=== PATIENT | female | born 2000 | race Caucasian/White ===

== ENCOUNTER → 2018-08-12 18:17 | Outpatient (CLI) | payer OTHER, SELFPAY ==
[2014-10-18 20:19] VITALS: BMI 23.0
[2018-08-12 23:03] LABS: Chlamydia Trachomatis by PCR Negative (Negative); Neisserai gonorrhoeae by PCR Negative (Negative); Probe Check PASS; Sample Adequacy Control PASS; Specimen Processing Control PASS
== END ==
PROVIDERS: Family Provider Pediatrics; PCP Pediatrics; Referring Provider Obstetrics & Gynecology; Visit Provider Obstetrics & Gynecology
DX: Z32.01 Encounter for pregnancy test, result positive (principal); Z11.3 Encounter for screening for infections with a predominantly sexual mode of transmission
CPT/HCPCS: 87491; 87591

== ENCOUNTER → 2018-08-26 14:42 | Outpatient (CLI) | payer OTHER, SELFPAY ==
[2014-10-18 20:19] VITALS: BMI 23.0
[2018-08-26 15:47] LABS: Color, Urine Yellow (Yellow); Glucose, Dipstick Normal (Normal); Ketone-Dipstick 5 mg/dl (Negative); Leukocyte Esterase-Dipstick 25 /ul (Negative); Nitrite-Dipstick Negative (Negative); Occult Blood-Urine 25 /ul (Negative); Protein-Dipstick 15 mg/dl (Negative); Urine Bilirubin Dipstick Negative (Negative); Urine Clarity Turbid (Clear); Urine Urobilinogen Normal (Normal)
[2018-08-26 16:18] LABS: Amphetamine Urine VISTA NEGATIVE (<1000 ng/mL); Barbiturate Urine VISTA NEGATIVE (< 200 ng/mL); Benzodiazepine Urine VISTA NEGATIVE (< 200 ng/mL); Cocaine Urine VISTA NEGATIVE (< 300 ng/mL); Ecstacy Urine VISTA NEGATIVE (< 500 ng/mL); Methadone Urine VISTA NEGATIVE (< 300 ng/mL); PCP Urine VISTA NEGATIVE (< 25 ng/mL); THC Urine VISTA NEGATIVE (< 50 ng/mL); Vista UDS pH Range 5
[2018-08-26 16:24] LABS: COTININE Drug Screen Positive (<200 ng/mL)
[2018-08-26 18:39] LABS: Absolute Lymphocyte Count 2.61 X10^3/ul (0.83-4.51); Absolute Neutrophil Count 7.8 X10^3/uL (2.0-7.7); Basophil# 0.01 X10^3/uL; Basophil% 0.1 % (0-1); Eosinophil# 0.25 X10^3/uL; Eosinophils% 2.2 % (0-5); Hemoglobin 12.9 g/dl (12.0-15.0); Lymphocyte # 2.61 X10^3/ul (4.0); Lymphocyte % 22.8 % (19-41); Mean Corp Hgb Conc 34.9 g/gl (32-36); Mean Corpuscular Hgb 33.1 pg (27.0-32.0); Mean Corpuscular Volume 94.9 fL (81-99); Monocyte# 0.73 X10^3/uL; Monocyte% 6.4 % (0-10); Neutrophil # 7.81 X10^3/uL (2.7-7.7); Neutrophil % 68.3 % (47-70); Platelet Count 342 K/mm3 (150-450); RBC Distribution Width CV 12.8 % (11.6-14.6); RBC Distribution Width SD 43.3 fl (35.1-43.9); White Blood Count 11.4 K/mm3 (4.4-11.0)
[2018-08-26 18:41] LABS: POSITIVE COUNT NO; POSITIVE DIFFERENTIAL NO; POSITIVE MORPHOLOGY NO
[2018-08-26 18:58] LABS: Thyroid Stim Hormone (TSH) 3.42 uIU/mL (0.358-3.74)
[2018-08-26 19:40] LABS: HIV - WCH Non-Reactive (Nonreactive); Rubella IgG 52.7 IU/mL
[2018-08-28 15:21] LABS: HEPATITIS B SURFACE AG Negative (Negative); Hep C Antibodies 0.1 s/co ratio (0.0-0.9); V-Zoster IgG (Immunity) 3464 index (Immune >165)
[2018-08-29 07:39] LABS: Prenatal RPR NONREACTIVE (NONREACTIVE)
== END ==
PROVIDERS: Visit Provider Obstetrics & Gynecology
DX: Z34.81 Encounter for supervision of other normal pregnancy, first trimester (principal)
CPT/HCPCS: 36415; 80307; 81002; 84443; 85025; 86703; 86762; 86787; 86803; 87340

== ENCOUNTER → 2019-01-20 | Outpatient (CLI) | payer OTHER, SELFPAY ==
[2014-10-18 20:19] VITALS: BMI 23.0
[2019-01-20 15:33] LABS: Hematocrit 31.1 % (37-47); Hemoglobin 10.6 g/dl (12.0-15.0); Mean Corp Hgb Conc 34.1 g/gl (32-36); Mean Corpuscular Hgb 32.3 pg (27.0-32.0); Mean Corpuscular Volume 94.8 fL (81-99); Mean Platelet Vol. 8.4 fl (6.2-12.0); Platelet Count 276 K/mm3 (150-450); RBC Distribution Width CV 13.3 % (11.6-14.6); Red Blood Count 3.28 M/mm3 (4.2-5.4); White Blood Count 13.1 K/mm3 (4.4-11.0)
[2019-01-20 15:39] LABS: Scan Indicated on CBC? Y/N NO
[2019-01-20 15:51] LABS: Glucose Challenge Gest 1H 50g 130 mg/dL (70-140)
== END | disposition home or self-care (01) ==
LOC: WOBLAB 15:14
PROVIDERS: Visit Provider Obstetrics & Gynecology
DX: Z34.83 Encounter for supervision of other normal pregnancy, third trimester (principal)
CPT/HCPCS: 36415; 82950; 85027

== ENCOUNTER → 2019-03-10 | Outpatient (CLI) | payer OTHER, SELFPAY | END | disposition home or self-care (01) | LOC: LABSPEC 15:53 | PROVIDERS: Visit Provider Obstetrics & Gynecology | DX: Z36.85 Encounter for antenatal screening for Streptococcus B (principal) | CPT/HCPCS: 87081 ==

== ENCOUNTER 2019-04-11 19:00 | Inpatient (IN) | payer OTHER, SELFPAY ==
[2019-04-11 19:45] VITALS: BMI 33.1
[2019-04-11] MEDS: Lactated Ringers 1,000 ML 50 ML IV (19:54)
[2019-04-11 20:09] LABS: Absolute Lymphocyte Count 2.47 X10^3/uL (0.83-4.51); Basophil# 0.02 X10^3/uL; Basophil% 0.1 % (0-1); Eosinophil# 0.22 X10^3/uL; Eosinophils% 1.6 % (0-5); Hematocrit 29.4 % (37-47); Hemoglobin 9.6 g/dL (12.0-15.0); Lymphocyte # 2.47 X10^3/ul (4.0); Lymphocyte % 18.1 % (19-41); Mean Corp Hgb Conc 32.7 g/dL (32-36); Mean Corpuscular Hgb 32.1 pg (27.0-32.0); Mean Corpuscular Volume 98.3 fL (81-99); Mean Platelet Vol. 9.1 fl (6.2-12.0); Monocyte# 0.76 X10^3/uL; Monocyte% 5.6 % (0-10); NRBC Flagged by Analyzer 0.2 % (0-5); Neutrophil # 9.97 X10^3/uL (2.7-7.7); Neutrophil % 73.2 % (47-70); Platelet Count 281 K/mm3 (150-450); RBC Distribution Width CV 14.5 % (11.6-14.6); RBC Distribution Width SD 51.4 fl (35.1-43.9); Red Blood Count 2.99 M/mm3 (4.2-5.4); White Blood Count 13.6 K/mm3 (4.4-11.0)
[2019-04-11] MEDS: miSOPROStol 25 MCG TABLET PO (20:11)
--- NOTE | 2019-04-11 21:00 | HP.PCM_ITS ---
History Date of Admission: 04/11/19 Final SANJAY: 04/05/19 Final SANJAY Source: US <20 weeks Gestational age: 40 Weeks and 6 Days History of this : This is a 18 year-old, G [1], P [0], at 40 6/7 weeks gestational age presents for scheduled induction of labor. +FM. No leaking of fluid, contractions or vaginal bleeding. 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 Allergies Penicillins [PCN] Allergy (Verified 04/11/19 19:44) Rash Home Medications: Home Medications No Known/Unobtainable [No Known Home Medications] 10/18/14 Smoking Status: Former smoker Alcohol: None Number of Fetus(es): 1 NST - FHR Rate Baby A Baseline: 140 Variability:: Moderate Accelerations:: 15 x 15 Decelerations:: None NST Reactive:: Yes FHR Category:: Category I Uterine Activity:: 0-1/10 History Past Pregnancies: Past Pregnancies Delivery Date Name GA/Weeks Outcome Route Weight Gender Labor Length Anesthesia Delivery Location Provider FOB Labs: Mom's Labs & Results 04/11/19 04/11/19 19:54 19:54 WBC 13.6 H RBC 2.99 L Hgb 9.6 L Hct 29.4 L MCV 98.3 MCH 32.1 H MCHC 32.7 RDW Std Deviation 51.4 H RDW Coeff of Monae 14.5 Plt Count 281 MPV 9.1 Immature Gran % (Auto) 1.400 H Neut % (Auto) 73.2 H Lymph % (Auto) 18.1 L Mcpherson % (Auto) 5.6 Eos % (Auto) 1.6 Baso % (Auto) 0.1 Absolute Neuts (auto) 10.0 H Absolute Lymphs (auto) 2.47 Nucleated RBC % 0.2 Blood Type A POSITIVE Antibody Screen NEGATIVE Course Did the patient receive Yes care? Labs Blood Type: A RH: POSITIVE RPR/VDRL/Syphilis Nonreactive Rubella status Equivocal HbSAg Negative Date Done: 08/24/18 Chlamydia Negative Gonorrhea Negative HIV/AIDS Non-Reactive Group B Strep: Negative Current Obstetrical History Gestational Diabetes No Incompetent Cervix No Infertility No IUGR No Macrosomia No Hypertension/Pre-eclampsia No Placenta Previa/Abruption No PTL/PROM No Uterine anomaly No Oligohydramnios No Polyhydramnios No Multiple gestation No Past Medical History Asthma Yes: sports induced Diabetes No Hypertension No Heart disease No Mitral valve prolapse No Neurologic/Seizure disorder/ No Migraines Kidney disease No Liver disease No Varicosities No Clotting disorders/Hx of DVT No Thyroid Dysfunction No Other medical diseases No Psychiatric disorders No Major trauma No Abnormal PAP smear No Sleep apnea No Mammogram in the last 2 years No Social History Marital Status: SINGLE Alleged father Yusuf Hx Smoking Yes Smoking Status Former smoker How long have you used n/a substances (years)? Expected Infant Delivery Method: Spontaneous Vaginal Physical Exam Vitals: AVSS General: Alert, Oriented x3, Cooperative, No apparent distress HEENT: Atraumatic, Normocephalic Cardiovascular: Regular rate, Regular Rhythm, Normal S1, Normal S2 Lungs: Clear to auscultation, Normal air movement Abdomen: Soft, Non Tender, Non-Distended, Gravid Extremities:: No edema Neurological: Neuro grossly intact Estimated gestational size: Appropriate for gestational size Presentation: Cephalic Cervix Dilation (cm): 1 Station: -3 Effacement (%): 0 Assessment/Plan This is a 18 year-old, G [1], P [], at 40 6/7 weeks gestational age for scheduled induction of labor, Cat I FHr -Cytotec for unfavorable cervix - status reassuring
[2019-04-12] MEDS: miSOPROStol 25 MCG TABLET PO ×2 (00:08→04:17)
[2019-04-12] MEDS: Mag Hydrox/Al Hydrox/Simeth 30 ML UDC PO ×2 (00:08→14:16)
[2019-04-12] MEDS: 0.9% Saline Lock 10 ML Syringe IV (09:13)
[2019-04-12] MEDS: 0.9% Normal Saline 100 ML IV.SOLN. IY (09:29)
--- NOTE | 2019-04-12 09:32 | PCM.PN.BLA ---
Progress Note LABOR PROGRESS NOTE No complaints. Feels some mild cramping. Had breakfast. AVSS GEN - NAD, AAO x 3 FHR 140, moderate variability, + accelerations, no deceleration TOCO 0-1/10 min SVE 1.5/50/-3, moderate and anterior A/P: 18yo G1 @ 41wga for IOL, Cat I FHR -Short bulb placed with 30cc NS, pt tolerated well. -Will start pitocin -Maternal and statuses reassuring.
[2019-04-12] MEDS: Oxytocin 30 units/NS 500 ml 30 UNITS/500 ML IV.SOLN IV (09:35)
[2019-04-12] MEDS: Nalbuphine 10 MG/ML Ampul IV (10:05)
[2019-04-12] MEDS: Lactated Ringers 500 ML 999 ML IV ×4 (12:14→22:23)
--- NOTE | 2019-04-12 12:37 | PCM.PN.BLA ---
Progress Note LABOR PROGRESS NOTE Cramping persists and feels some contractions intermittently. Requests an epidural. AVSS GEN - NAD, AAO x 3 FHR 140, moderate variability, + accelerations, no decelerations TOCO 3/10 min previously (not tracing when pt on her side however) SVE 4/60/-2, moderate and anterior A/P: 18yo G1 @ 41wga, IOL with Cat I FHR -Amniotomy performed with clear fluid, IUPC placed -Maternal and statuses reassuring -Epidural per patient request
[2019-04-12] MEDS: fentaNYL-bupivacaine (epidural) 100 ML BAG EPIDURAL ×2 (13:29→19:03)
[2019-04-12] MEDS: Lactated Ringers 1,000 ML 200 ML IV ×2 (16:00→21:24)
--- NOTE | 2019-04-12 19:50 | PCM.PN.BLA ---
Progress Note LABOR PROGRESS NOTE No complaints. Remains comfortable. AVSS GEN - NAD< AAO x 3 FHR 150, moderate variability, + accelerations, + variable decelerations TOCO 3/10 min SVE deferred A/P: 18 yo G1 @ 41wga, Cat II FHR -s/p cytotec, chris bulb. Pitocin resumed following resolution of late decelerations. Will titrate as tolerated by mother and fetus. -Maternal and statuses reassuring.
--- NOTE | 2019-04-12 23:50 | PCM.PN.BLA ---
Progress Note LABOR PROGRESS NOTE Sara reports painfulness in her lower left abdomen. Tm 100.6 VSS GEN - appears uncomfortable, tearful FHR 150, moderate variabiltiy, + variable decelerations and late decelerations TOCO 3-4/10 min SVE 9/100/0 per DANIEL Barrera Abdomen - soft, nontender A/P: 18 yo G1 @ 41wga in active labor, Cat II FHR with increased temperature -Will start amnioinfusion -Anesthesiologist notified re pain relief -Will start Cefotetan for suspected intra-amnionic inflammation - cannot r/o chorioamnionitis. Patient penallergic.
[2019-04-13] MEDS: Amnioinfusion- 0.9% NS 1,000 ML IV.SOLN. 300 ML INTRA-UTER (00:07)
[2019-04-13] MEDS: Lactated Ringers 500 ML 999 ML IV (00:23)
[2019-04-13] MEDS: fentaNYL-bupivacaine (epidural) 100 ML BAG EPIDURAL (00:49)
--- NOTE | 2019-04-13 00:57 | PCM.PN.BLA ---
Progress Note LABOR PROGRESS NOTE No relief of pain with epidural redosing. Reports left abdominal pain is moving downward. AVSS GEN - appears uncomfortable FHR 160, moderate variability, no accelerations, + variable decelerations TOCO 3/10 min FD/+2 station A/P: 18yo G1 @ 41 1/7wga in labor, Cat II FHR -Variable decelerations improved with amnioinfusion overall -Will start pushing -Anticipate
[2019-04-13] MEDS: Oxytocin 30 units/NS 500 ml 30 UNITS/500 ML IV.SOLN 334 UNITS IV (02:25)
--- NOTE | 2019-04-13 02:41 | PLAC_PTH ---
PATIENT: YAMIEL SHAFFER LOC: [facility] U#:[id number] AGE/SX: 18/F ROOM: WP005 RE04/11/[address]: Dr. Salome Parekh MD : 2000 BED: 1 DIS: 04/15/2019 SPEC #: [id number] RECD: 04/13/19 06:44 STATUS: KELLY NEGRITO #: [id number] GLENIS: 04/13/19 02:[address]: Salome Carrera DEPT: SURGICAL PATHOLOGY RECD BY: Kevin Dowell Tissues: Placenta, NOS Procedures: Surgery Specimen Level V HEADER OPERATION: Vaginal delivery PRE-OP DIAGNOSIS: 41 1/7wga, suspect intra-amnionic inflammation TISSUE SUBMITTED: Placenta MICROSCOPIC DIAGNOSIS Placenta: Placental disc - third trimester placenta (406 gm). - Focal area of increased intervillous and perivillous fibrin deposition, infarction and calcification (1.5 cm in greatest dimension). - Focal increased calcifications. Membranes - no pathologic diagnosis. Umbilical cord - three blood vessels and no pathologic diagnosis. SJ:rg 04/15/19 COMMENT Case has been reviewed in consultation with Dr. Mackay who concurs with the above diagnosis. IDC:AM MICROSCOPIC DESCRIPTION Slides are reviewed. GROSS DESCRIPTION SPECIMEN: PLACENTA / CLINICAL INFORMATION: A. Weight: 3.189 kg B. Gestational Age: 41 weeks C. Sex: Male PLACENTAL WEIGHT (POST FIXATION): 406 gm PLACENTAL DIMENSIONS: 16 x 15 x 3 cm PLACENTAL SHAPE: Usual ovoid PLACENTAL WEIGHT FOR GESTATIONAL AGE: Within 10-99th percentile MEMBRANES - Present A. Insertion: Marginal B. Site of rupture from edge: 2 cm from edge of placental disc C. Color of membrane: James-valentin D. Abnormalities: None UMBILICAL CORD - Present A. Color: James-valentin B. Insertion: Eccentric C. Length: 38 cm D. Diameter: 1.5 cm E. Number of vessels: Three F. Abnormalities: None PLACENTAL DISC - Present A. Color of surface: James-valentin B. surface abnormalities: None C. Maternal cotyledons: Intact with minimal tears D. Attached retro placental clot: No clot E. Cut surface: Dark red and spongy F. Lesions: Sections reveal a james-white, gritty lesion measuring 1.5 x 1 cm. G. Separate clot: Absent SECTIONS SUBMITTED: 1. Umbilical cord ( end inked) 2. Membrane roll 3. Placental disc, and maternal surfaces, lesion 4. Placental disc, and maternal surfaces 5. Placental disc, and maternal surfaces AM:adelita 04/14/19 TC:5 CPT: 88717
--- NOTE | 2019-04-13 02:44 | PCM.OPRPT ---
Problem List (1) 41 weeks gestation of Status: Acute (2) (spontaneous vaginal delivery) Status: Acute Report of Operation Date of Procedure: 04/13/19 Vaginal Delivery Maternal Presentation: Medically Indicated Induction Method of Induction: Pitocin, Short Bulb, Amniotomy, Cytotec Medical Reason for Induction: - - Late term Rupture of Membrane time: 04/12/19 1226h Amniotic Fluid Description: Clear Final SANJAY: 04/05/19 Final SANJAY Source: US <20 weeks Gestational age: 41 Weeks and 1 Days Date of Procedure: 04/13/19 Pre-Operative Diagnosis: 41 1/7 weeks gestation Post-Operative Diagnosis: 41 1/7 weeks gestation Surgery/ Procedure Performed: Spontaneous Vaginal Delivery Anesthesiologist: Opal Grajeda Type of Anesthesia: Epidural Description of Procedure: Patient was FD/+3 on my arrival and uncomfortable. She reported her painfulness had continued to descent into the pelvis and vagina. She pushed to deliver a male infant in OA. The mouth and nares were suction at the perineum. The infant was placed on the maternal abdomen and further attended by nursery personnel. The cord was doubly clamped and cut at approximately 30 seconds of life. Cord gases were obtained. The placenta delivered spontaneously and appeared intact on inspection. Pelvic pain resolved fully with delivery of the placenta. An intrauterine exam was performed. 10cc of 1% lidocaine was administered vaginally as pt reported discomfort. A vaginal laceration was repaired with 3-0 Vicryl Rapide with excellent hemostasis. Sponge and needle counts were correct x 2. Presentation: Vertex Placental Delivery Description: Spontaneous Placenta Disposition: Sent to Pathology Cord Vessel Description: 3 Vessels Nuchal Cord Compression: Without compression Cord Gases drawn per routine: ABG, VBG Cord Entanglement: Around neck x 1, loose Drain: Short to straight drain Estimated Blood Loss: 350 ml Infant A gender: Male (1 minute): 7 (5 minute): 9 Episiotomy Description: None Laceration: Midline, Vaginal Extension/lac Medications given after delivery: IV Pitocin Complications: None
[2019-04-13] MEDS: Acetaminophen 325 MG Tablet PO (03:39)
[2019-04-13] MEDS: Ibuprofen 600 MG Tablet PO ×3 (03:39→23:23)
[2019-04-13 04:43] VITALS: BP 130/68; PULSE 85; RESP 16; TEMP 36
[2019-04-13] MEDS: 0.9% Saline Lock 10 ML Syringe IV (05:07)
[2019-04-13 06:41] LABS: Pathology Specimen OB SEE PATHOLOGY REPORT
[2019-04-13 08:00] VITALS: BP 131/75; PULSE 67; RESP 18; TEMP 36.4
--- NOTE | 2019-04-13 09:40 | NURSING ---
urine amount estimated from pad weight due to pad falling in specimen hat.
--- NOTE | 2019-04-13 10:16 | PCM.PN.OB ---
Patient Problems: Active and Suspected Problems (Last Updated 04/12/19 @ 12:40 by Salome Duarte MD) 41 weeks gestation of (Acute) (spontaneous vaginal delivery) (Acute) Subjective: Resting comfotrtably, denies pain, passing flatus, fatigued from delivery; bottle feeding Objective: FOB, mother, bedside; patient attentive to in bassinet at bedside; affect normal; breasts soft - Physical Exam General: Alert, Oriented x3, Cooperative HEENT: PERRLA, EOMI Oral: Moist Mucosa Neck: Supple Lungs: Clear to auscultation Cardiovascular: Regular rate, Regular Rhythm Abdomen: Bowel Sounds Present, Soft, Non Tender - Fundus u/u, firm, midline Lochia scant 2nd degree perineal repair well approximated, edematous, without erythema or drainage Extremities: No Calf Tenderness, Peripheral Pulses Normal Neurological: Cranial nerves II-XII grossly intact, Deep Tendon Reflexes 2+/4 and Symmetrical Vital Signs Temp Pulse Resp BP 97.5 F L 67 18 131/75 H 04/13/19 08:00 04/13/19 08:00 04/13/19 08:00 04/13/19 08:00 Oxygen Delivery Method Room Air Weight: 181 lb 6.4 oz Body Mass Index (BMI) 33.1 Intake and Output for Last 24 Hours 04/11/19 04/12/19 04/13/19 23:59 23:59 23:59 Intake Total 46.67 / 46.67 4348.58 / 4348.58 1638.67 / 1638.67 Output Total 2400 / 2400 800 / 800 Balance 46.67 / 46.67 1948.58 / 1948.58 838.67 / 838.67 Medical Necessity - Tobacco Use Smoking Status: Former smoker Assessment/Plan All Active Problems (Last Updated 04/12/19 @ 12:40 by Salome Duarte MD) 41 weeks gestation of (Acute) (spontaneous vaginal delivery) (Acute) Assessment: Day of delivery Normal involution Plan: Continue routine care Will discuss discharge information tomorrow
[2019-04-13 12:00] VITALS: BP 126/74; PULSE 106; RESP 18; TEMP 36.9
[2019-04-13 16:00] VITALS: BP 125/71; PULSE 105; RESP 18; TEMP 36.8
[2019-04-13 19:45] VITALS: BP 119/72; PULSE 91; RESP 18; TEMP 37.1; O2SAT 94
[2019-04-13] MEDS: Acetaminophen 500 MG Tablet 1000 MG PO (19:53)
[2019-04-14 01:00] VITALS: BP 109/62; PULSE 60; RESP 15; TEMP 36.6; O2SAT 95
--- NOTE | 2019-04-14 09:00 | PCM.PN.OB ---
Patient Problems: Active and Suspected Problems (Last Updated 04/12/19 @ 12:40 by Salome Duarte MD) 41 weeks gestation of (Acute) (spontaneous vaginal delivery) (Acute) Subjective: No issues overnight. Doing well. Perineal soreness improved with ice packs. Had a bowel movement, denies heavy lochia. Has some urinary urgency. Objective: AVSS - Physical Exam General: Alert, Oriented x3, Cooperative, No apparent distress HEENT: Atraumatic, Normocephalic Lungs: Clear to auscultation, Normal air movement Cardiovascular: Regular rate, Regular Rhythm, Normal S1, Normal S2 Abdomen: Soft, Non Tender, Non-Distended, - - fundus firm and nontender Extremities: No edema, No Calf Tenderness Neurological: Neuro grossly intact Psych/Mental Status: Normal Affect, Appropriate, Alert and oriented to time, place, person, mood and affect Vital Signs Temp Pulse Resp BP Pulse Ox 97.9 F 60 15 109/62 95 04/14/19 01:00 04/14/19 01:00 04/14/19 01:00 04/14/19 01:00 04/14/19 01:00 Oxygen Delivery Method Room Air Weight: 82.282 kg Body Mass Index (BMI) 33.1 Intake and Output for Last 24 Hours 04/12/19 04/13/19 04/14/19 23:59 23:59 23:59 Intake Total 4348.58 / 4348.58 1638.67 / 1638.67 Output Total 2400 / 2400 800 / 800 Balance 1948.58 / 1948.58 838.67 / 838.67 Medical Necessity - Tobacco Use Smoking Status: Former smoker Assessment/Plan All Active Problems (Last Updated 04/12/19 @ 12:40 by Salome Duarte MD) 41 weeks gestation of (Acute) (spontaneous vaginal delivery) (Acute) This is a 18 year-old, G [1], P [1 PPD#1 s/p doing well. -Rh positive -Rubella equivocal -Routine care -Bottlefeeding
[2019-04-14 09:30] VITALS: BP 120/68; PULSE 87; RESP 16; TEMP 36.8
[2019-04-14] MEDS: Senna/Docusate Sodium 1 Tablet PO (10:41)
[2019-04-14] MEDS: Ibuprofen 600 MG Tablet PO ×2 (10:41→20:09)
[2019-04-14 14:00] VITALS: BP 116/60; PULSE 78; RESP 16; TEMP 36.9
[2019-04-14 20:12] VITALS: BP 105/69; PULSE 96; RESP 18; TEMP 37.3; O2SAT 99
--- NOTE | 2019-04-14 22:05 | DCINST_ITS ---
Discharge Diet: No Restrictions Discharge Activity: Return to Normal Activity, May Shower, May Take a Tub Bath May resume sexual activity in: 6 weeks Lifting Restrictions: 10-20 lb Additional Instructions: If you experience any of the following, contact your healthcare provider. * Bleeding that soaks a pad every hour for 2 hours * Fever 100.4 or higher * Unrelieved incision or abdominal pain * Swelling, redness, discharge or bleeding from your incision or episiotomy site * Your incision begins to separate * Problems urinating (including inability to urinate or burning while urinating). * Visual changes * Severe headache * Flu-like symptoms * Pain or redness in one of both of your breasts * Pain, warmth, tenderness or swelling in your legs, especially the calf area * Frequent nausea and vomiting * Symptoms of depression or anxiety If you experience any of the following, call 911 or go to the nearest Emergency Room. * Chest pain * Problems breathing * Seizure activity * Partial or complete paralysis of a body part, slurred speech, weakness or drooping of the face, or a sudden inability to walk or hold your balance Allergies/Adverse Reactions: Allergies Penicillins [PCN] Allergy (Verified 04/11/19 19:44) Rash Medications to take at Discharge Ibuprofen [Motrin] 600 mg PO Q8H PRN PRN #30 tab 04/14/19 The following prescriptions were given: Ibuprofen [Motrin] 600 mg PO Q8H PRN PRN #30 tab PRN Reason: Pain Transmission Status: Pending to [id number] Please Follow Up With: Salome Duarte MD When: 6 weeks Test Results: Test results from this visit will be discussed in further detail at your follow- up appointment, if applicable.
--- NOTE | 2019-04-14 22:05 | PCM.DCVAG ---
Discharge Diet: No Restrictions Discharge Activity: Return to Normal Activity, May Shower, May Take a Tub Bath May resume sexual activity in: 6 weeks Lifting Restrictions: 10-20 lb Additional Instructions: If you experience any of the following, contact your healthcare provider. Bleeding that soaks a pad every hour for 2 hours Fever 100.4 or higher Unrelieved incision or abdominal pain Swelling, redness, discharge or bleeding from your incision or episiotomy site Your incision begins to separate Problems urinating (including inability to urinate or burning while urinating). Visual changes Severe headache Flu-like symptoms Pain or redness in one of both of your breasts Pain, warmth, tenderness or swelling in your legs, especially the calf area Frequent nausea and vomiting Symptoms of depression or anxiety If you experience any of the following, call 911 or go to the nearest Emergency Room. Chest pain Problems breathing Seizure activity Partial or complete paralysis of a body part, slurred speech, weakness or drooping of the face, or a sudden inability to walk or hold your balance Allergies/Adverse Reactions: Allergies Penicillins [PCN] Allergy (Verified 04/11/19 19:44) Rash Medications to take at Discharge Ibuprofen [Motrin] 600 mg PO Q8H PRN PRN #30 tab 04/14/19 The following prescriptions were given: Ibuprofen [Motrin] 600 mg PO Q8H PRN PRN #30 tab PRN Reason: Pain Transmission Status: Pending to [id number] Please Follow Up With: Salome Duarte MD When: 6 weeks Test Results: Test results from this visit will be discussed in further detail at your follow-up appointment, if applicable.
[2019-04-15 02:10] VITALS: BP 102/55; PULSE 91; RESP 16; TEMP 37.2; O2SAT 97
--- NOTE | 2019-04-15 07:42 | PCM.PN.OB ---
Patient Problems: Active and Suspected Problems (Last Updated 04/12/19 @ 12:40 by Salome Duarte MD) 41 weeks gestation of (Acute) (spontaneous vaginal delivery) (Acute) Subjective: No issues overnight. No complaints. Feels well and looks forward to going well. Objective: AVSS - Physical Exam General: Alert, Oriented x3, Cooperative, No apparent distress HEENT: Atraumatic, Normocephalic Lungs: Normal air movement Cardiovascular: Regular rate, Regular Rhythm, Normal S1, Normal S2 Abdomen: Soft, Non Tender, Non-Distended, - - Fundus firm and nontender Extremities: No edema, No Calf Tenderness Neurological: Neuro grossly intact Psych/Mental Status: Normal Affect, Appropriate, Alert and oriented to time, place, person, mood and affect Vital Signs Temp Pulse Resp BP Pulse Ox 99.0 F 91 16 102/55 L 97 04/15/19 02:10 04/15/19 02:10 04/15/19 02:10 04/15/19 02:10 04/15/19 02:10 Oxygen Delivery Method Room Air Weight: 82.282 kg Body Mass Index (BMI) 33.1 Intake and Output for Last 24 Hours 04/13/19 04/14/19 04/15/19 23:59 23:59 23:59 Intake Total 1638.67 / 1638.67 Output Total 800 / 800 Balance 838.67 / 838.67 Medical Necessity - Tobacco Use Smoking Status: Former smoker Assessment/Plan All Active Problems (Last Updated 04/12/19 @ 12:40 by Salome Duarte MD) 41 weeks gestation of (Acute) (spontaneous vaginal delivery) (Acute) This is a 18 year-old, G [1], P [1 PPD#2 s/p doing well. -Rh positive -Rubella immune (previously reported equivocal, but she is immune) -Routine care -Bottlefeeding -d/c home today
--- NOTE | 2019-04-15 07:44 | PCM.DC.SUM ---
Discharge Date and Diagnosis - Problem List Patient Problems: Active and Suspected Problems (Last Updated 04/12/19 @ 12:40 by Salome Duarte MD) 41 weeks gestation of (Acute) (spontaneous vaginal delivery) (Acute) Date of Admission: 04/11/19 Date of Discharge: 04/15/19 - Primary Discharge Diagnosis Active and Suspected Problems (Last Updated 04/12/19 @ 12:40 by Salome Duarte MD) 41 weeks gestation of (Acute) (spontaneous vaginal delivery) (Acute) Hospital Course and Treatment Operations: None Summary of Care Provided: The patient is a 18 year old F admitted at 40 6/7wga for scheduled induction of labor. She progressed to FD and had an at 41 1/7 wga. Her course was unremarkable and she was discharged to home on day#2. Patient Problems: Active and Suspected Problems (Last Updated 04/12/19 @ 12:40 by Salome Duarte MD) 41 weeks gestation of (Acute) (spontaneous vaginal delivery) (Acute) - Physical Exam Vital Signs Temp Pulse Resp BP Pulse Ox 99.0 F 91 16 102/55 L 97 04/15/19 02:10 04/15/19 02:10 04/15/19 02:10 04/15/19 02:10 04/15/19 02:10 Oxygen Delivery Method Room Air Weight: 82.282 kg Body Mass Index (BMI) 33.1 Intake and Output for Last 24 Hours 04/13/19 04/14/19 04/15/19 23:59 23:59 23:59 Intake Total 1638.67 / 1638.67 Output Total 800 / 800 Balance 838.67 / 838.67 Discharge Diet: No Restrictions Discharge Activity: Return to Normal Activity, May Shower, May Take a Tub Bath May resume sexual activity in: 6 weeks Home Medications: Medications to take at Discharge Ibuprofen [Motrin] 600 mg PO Q8H PRN PRN #30 tab 04/14/19 Following Prescrptions Were Given to Patient: Ibuprofen [Motrin] 600 mg PO Q8H PRN PRN #30 tab PRN Reason: Pain Transmission [id number] Please Follow Up With: Salome Duarte MD Medical Necessity - Tobacco Use Smoking Status: Former smoker Meaningful Use Info Meaningful Use Diagnoses (Choose all that apply): None applicable
[2019-04-15 09:00] VITALS: BP 115/73; PULSE 82; RESP 20; TEMP 36.8; O2SAT 96
== END 2019-04-15 13:15 | disposition home or self-care (01) | DRG 807 ==
PROVIDERS: Admitting Provider Obstetrics & Gynecology; Visit Provider Obstetrics & Gynecology
DX: O48.0 Post-term pregnancy (principal); Z37.0 Single live birth; Z3A.41 41 weeks gestation of pregnancy; Z87.891 Personal history of nicotine dependence; O76 Abnormality in fetal heart rate and rhythm complicating labor and delivery; O69.81X0 Labor and delivery complicated by cord around neck, without compression, not applicable or unspecified; O70.1 Second degree perineal laceration during delivery
CPT/HCPCS: 59025; 59050; 85025; 86850; 86900; 86901; 88307; 99218; J7030; J7120; A4216; G0378

== ENCOUNTER 2020-05-20 07:08 | Day surgery (SDC) | payer OTHER, SELFPAY ==
[2020-04-27 11:25] VITALS: BMI 33.1
--- NOTE | 2020-05-19 19:43 | HP.PCM_ITS ---
History and Physical Date of Admission: 05/20/20 HISTORY OF PRESENT ILLNESS 19 year old woman presents for evaluation for TBSE. She is concerned about a lesion on the left lateral forehead by the hairline that has increased in size over the last several months and has developed irregular borders. She denies fever. She denies trauma. She denies drainage or recent infection. She presents at this time for further evaluation and treatment. 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 Eyes - Denies cataracts and glaucoma. ENT - Denies nasal congestion and sore throat. Endocrine - Denies excessive thirst and urination. Skin - Denies skin cancer. There is an enlarging lesion left lateral forehead by hairline. Musculoskeletal - Denies joint pain, joint stiffness, weakness of muscles and joints, back pain, and arthritis. Neuro - Denies headaches. Cardiovascular - Denies chest pain, fatigue, and shortness of breath with exertion. Psych - Denies anxiety and depression. Respiratory - Denies chronic cough and shortness of breath. Gastrointestinal - Denies nausea, vomiting, diarrhea, and constipation. Hematologic - Denies abnormal bruising and bleeding. Genitourinary - Denies hematuria and urinary frequency. PHYSICAL EXAMINATION General - Alert and Oriented. HEENT - PERRL. EOMI. Throat is clear. On the left lateral forehead by the hairline is a lesion that measures 1 cm. It is slightly raised in configuration. It has irregular borders. Has uniform coloration. No ulcerat ion. Lesion is nontender. No other suspicious lesions noted. Neck - Supple and nontender. No cervical adenopathy. No suspicious lesions noted. Lungs - Clear to auscultation. Heart - Regular rate and rhythm. Abdomen - Soft and nondistended. Extremities - FROM. No axillary adenopathy. Radial pulses are palpable. No suspicious lesions noted. Neuro - CN II-XII grossly intact. Psych - Normal mood and affect. ASSESSMENT 1 cm lesion left lateral forehead by hairline. PLAN Recommend excision of this lesion left lateral forehead by hairline and send it to Pathology for analysis to rule out carcinoma. If carcinoma is present, then further excision will be done with skin flap or skin graft reconstruction. Surgery will be done under local anesthesia and IV sedation on an outpatient basis. Patient was informed of the risks and complications of the procedure including alternatives to surgery. These were discussed with the patient personally. Patient voices understanding and wishes to proceed. Some of the risks and complications were included in a form from the [employer]. We discussed the current risks associated with COVID-19. While it is understood that there is a community spread of COVID-19, the risk of kian COVID-19 while at [facility] [place] ([facility]) is very low; however, the risk cannot be completely mitigated because of the community spread of the disease. We discussed in detail the risk of exposure to and/or potential harm posed by the COVID-19 virus with having a surgery/procedure at this time versus the risk of delaying the surgery/procedure. It is not possible to know either the risk of delaying the surgery or procedure or chance of getting an infection with perfect accuracy, but a joint decision was made to proceed at this time with the scheduled surgery/procedure as indicated on the consent form. Patient was notified that we will need to comply with any screening or testing [facility] wishes to perform or that surgery may be delayed for any positive results. Discussed with the patient that I was tested for COVID-19 on 01/28/20 which was negative and on 02/11/20 which was negative and on 02/25/20 which was negative and on 03/10/20 which was negative and on 03/24/20 which was negative and on 04/14/20 which was negative and on 05/05/20 which was negative. My testing regimen at this time is to be COVID-19 tested every 2 weeks or so. Procedure Criteria Procedure Type: Elective COVID Risk Discussion: The surgeon/proceduralist and patient have discussed in detail the risk of exposure to and/or potential harm posed by the COVID-19 virus with having a surgery/procedure at this time versus the risk of delaying the surgery/procedure. It is not possible to know either the risk of delaying the surgery or procedure or chance of getting an infection with perfect accuracy, but a joint decision was made between the patient and the surgeon/proceduralist to proceed at this time with the scheduled surgery/procedure as indicated on the consent form.
--- NOTE | 2020-05-20 | LES_PTH ---
PATIENT: YAMILE SHAFFER [place] [facility] [id number] AGE/SX: 19/ ROOM: RE05/20/[address]: Dr. Marcelo Prakash MD : 2000 BED: DIS: 05/20/2020 SPEC #: [id number] RECD: 05/20/20 08:56 STATUS: KELLY NEGRITO #: [id number] GLENIS: 05/20/20 00:[address]: Marcelo Prakash DEPT: SURGICAL PATHOLOGY RECD BY: Melinda Ortiz ENTERED: 05/20/20 09:17 SP TYPE: Lesion OTHR DR: KELLEN Wells Tissues: Skin of forehead Procedures: Frozen Section (charge) Surgery Specimen Level IV HEADER OPERATION: Excision lesion lateral forehead with frozen section PRE-OP DIAGNOSIS: 1 cm lesion left lateral forehead by hairline TISSUE SUBMITTED: 1 cm lesion left lateral forehead by hairline, frozen section at 0852 FROZEN SECTION DIAGNOSIS Lesion, left lateral forehead by hairline, shave biopsy: Compound nevus. SJ:adelita 05/20/20 MICROSCOPIC DIAGNOSIS Lesion of left lateral forehead by hairline, shave biopsy: Compound nevus. See comment. AM:adelita 05/23/20 COMMENT The lesion extends to the deep margins of excision. Clinical correlation is suggested. MICROSCOPIC DESCRIPTION Slides are reviewed. GROSS DESCRIPTION Received fresh for frozen section diagnosis labeled with the patient's name is a specimen designated lesion left lateral forehead by [facility]. The specimen consists of an ovoid irregular piece of james-brown skin measuring 0.7 x 0.7 x 0.1 cm. The specimen is inked, bisected and submitted entirely for frozen section diagnosis in one cassette. / STEPHANIE:adelita 05/20/20 TC:5 CPT: 12457, 15486
[2020-05-20 07:47] LABS: Internal QC Validated? YES +Cl - CLEAR BKGD; Pregnancy, Urine Negative Negative
[2020-05-20 07:48] VITALS: BP 132/71; PULSE 65; RESP 16; TEMP 36.8; O2SAT 100; BMI 26.9
[2020-05-20] MEDS: Lactated Ringers 1,000 ML 100 ML IV (07:52)
[2020-05-20] MEDS: Silver Nitrate (BKC) 1 EACH (09:14)
[2020-05-20] MEDS: Mupirocin Ointment 22gm Tube 1 APPLIC (09:15)
--- NOTE | 2020-05-20 09:16 | OP.PCM_ITS ---
Report of Operation Date of Procedure: 05/20/20 Pre-Operative Diagnosis: 1 cm lesion left lateral forehead by hairline. 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 Surgery/Procedure Performed:: Intradermal excision 1 cm compound nevus left lateral forehead by hairline. Description of Surgical Findings:: 19 year old woman presents for evaluation for TBSE. She is concerned about a lesion on the left lateral forehead by the hairline that has increased in size over the last several months and has developed irregular borders. She denies fever. She denies trauma. She denies drainage or recent infection. Patient was informed of the risks and complications of the procedure including alternatives to surgery. These were discussed with the patient personally. Patient voices understanding and wishes to proceed. Some of the risks and complications were included in a form from the [employer]. Frozen section left lateral forehead by hairline - compound nevus and no carcinoma seen. software test analyst: None Type of Anesthesia:: Local MAC - xylocaine with epinephrine and IV sedation. Specimen's removed: Lesion left lateral forehead by hairline to Pathology as a frozen section. Drains: None. Estimated Blood Loss (mL): 1 ml. Description of Procedure: Patient was taken to OR in supine position and was given IV sedation. The left face was prepped and draped in the usual fashion. SCD's were placed for DVT prophylaxis. Perioperative antibiotics were given intravenously. For the procedure, I wore an N95 mask and wore proper eyewear protection. The lesion left lateral forehead by hairline was infiltrated with xylocaine and epinephrine. After waiting 5 minutes for the anesthetic to take effect, the lesion was excised in an intradermal fashion. It was sent to Pathology as a frozen section for analysis to rule out carcinoma. Frozen section showed it was a compound nevus and no carcinoma seen. Therefore no further excision is needed at this time. Hemostasis was obtained with gentle pressure and silver nitrate chemical cauterization. Antibiotic ointment was applied to the wound. Patient tolerated the procedure well and was sent to PACU in satisfactory condition. Patient will be sent home on antibiotics and pain medication. She will keep her head elevated during the initial postoperative period. Patient will followup in a week for a wound check and for discussion of the pathology report. Grafts/Implants Used: None. - Complications None. - Admit VTE Documentation VTE Present on Admission: No VTE Mechan Device Prophylaxis: SCD's VTE Pharm Prophylaxis ordered?: No Surgery Charges CPT - 79305 ICD-10 - D49.2
[2020-05-20 09:24] VITALS: BP 111/74; BP 132/71; PULSE 56; RESP 16; TEMP 36.1; O2SAT 100
--- NOTE | 2020-05-20 09:25 | DCINST_ITS ---
You will use the following diet at home:: No restrictions Discharge Activity: May not drive while taking narcotic pain medications., - - head elevated. May shower in (days): 2 May resume sexual activity in: No Restrictions Ice area for (Minutes): 5 - as needed for facial swelling. Weight Bearing Status: Weight bearing as tolerated Keep extremity elevated above heart level: - - elevate head. Call your doctor if your incision/area has: Continuous Slow Oozing, Sudden Increased Bleeding, Increased Pain/ Swelling, Increased Redness, Foul Smelling Discharge, Swelling at the incision site Call your doctor if you observe: Fever of 101 or Higher, Coldness, Increased Pain, Shortness of breath, Chest pain, Calf discomfort, Uncontrolled pain Suture Line Care: - - apply antibiotic ointment to suture line daily. Cleanse incision/area with: - - may get wound wet in the shower in two days. Allergies/Adverse Reactions: Allergies amoxicillin Allergy (Verified 05/12/20 08:18) Rash Penicillins [PCN] Allergy (Verified 04/27/20 11:11) Rash ANY CILLIN'S Allergy (Uncoded 05/12/20 08:19) Rash Medications to take at Discharge Clindamycin HCl [Cleocin] 300 mg PO TID #9 cap 05/20/20 Oxycodone HCl/Acetaminophen [Percocet 5/325] 1 tablet PO BID PRN PRN 3 Days #5 tablet 05/20/20 The following prescriptions were given: Clindamycin HCl [Cleocin] 300 mg PO TID #9 cap Transmission Status: Pending to [facility] Oxycodone HCl/Acetaminophen [Percocet 5/325] 1 tablet PO BID PRN PRN 3 Days #5 tablet PRN Reason: Pain Score 6-10 Transmission Status: Sent to [facility] Primary Care Physician: Tanvi Alamo PA [Primary Care Provider] - Test Results: Test results from this visit will be discussed in further detail at your follow- up appointment, if applicable. Please Follow Up With: Marcelo Prakash MD When: one week. call [phone] for appt. Proposed Discharge Date: 05/20/20
[2020-05-20 09:30] VITALS: BP 107/65; BP 132/71; PULSE 56; RESP 16; O2SAT 100
[2020-05-20 09:35] VITALS: BP 107/69; BP 132/71; PULSE 55; RESP 16; O2SAT 100
[2020-05-20 09:40] VITALS: BP 100/70; BP 132/71; PULSE 56; RESP 16; TEMP 36.4; O2SAT 100
[2020-05-20 10:28] VITALS: BP 103/66; BP 132/71; PULSE 58; RESP 18; TEMP 36.8; O2SAT 99
== END 2020-05-20 10:30 | disposition home or self-care (01) ==
LOC: SDC 07:09 → AC 07:09
PROVIDERS: Anesthesiology; PCP Physician Assistant; Referring Provider Surgery; Visit Provider Surgery
DX: D22.39 Melanocytic nevi of other parts of face (principal); Z11.59 Encounter for screening for other viral diseases; J45.990 Exercise induced bronchospasm; Z87.891 Personal history of nicotine dependence
CPT/HCPCS: 00300; 11441; 81025; 87635; 88305; 88331; J7120; U0003